=== PATIENT | female | born 1985 | race Caucasian/White ===

== ENCOUNTER 2019-03-25 21:07 | Emergency (ER) | payer OTHER ==
[~2019-03-25] VITALS: Ht 165.1 cm; Wt 68.7 kg
[~2019-03-25 21:07] MED LIST: FLUC150T PO; IBUP-1542 PO; METR500T PO
[2019-03-25 22:02] VITALS: BP 131/71; Ht 165.1 cm; Wt 68.7 kg
[2019-03-26 00:24] VITALS: PULSE 68; RESP 20
== END 2019-03-26 00:22 | disposition home or self-care (01) ==
LOC: FTE 21:07
DX: N76.0 Acute vaginitis (principal)
CPT/HCPCS: 81001; 81025; 84703; Z7502; 81003; 99284